=== PATIENT | male | born 1950 | race Two or more races ===

== ENCOUNTER 2020-10-11 07:57 | Day surgery (SDC) | payer MEDICARE, MEDICAID ==
--- NOTE | 2020-10-11 08:01 | PCM.PREANE ---
Preanesthetic Assessment - Procedure Proposed Procedure: Right Cataract Extraction with IOL. - Anesthesia/Transfusion/Family Hx Anesthesia History: Prior Anesthesia Without Reaction Family History of Anesthesia Reaction: No Transfusion History: No Prior Transfusion(s) Intubation History: Unknown - Review of Systems General: No Symptoms Pulmonary: No Symptoms (Quit smoking: more than 10 years ago.) Cardiovascular: No Symptoms, Palpitations Gastrointestinal: No Symptoms (GERD), Constipation, Diarrhea, Difficulty Swallowing Neurological: No Symptoms (CVA: 2000) Other: Reports: Easy Bleeding, Anxiety - Physical Assessment NPO Status Date: 10/10/20 NPO Status Time: 23:00 Vital Signs: HR:80 Sat:99% Temp:97.9 Resp:16 B/P:124/88 Height: 1.63 m Weight: 71.214 kg ASA Class: 3 Mental Status: Alert & Oriented x3 Airway Class: Mallampati = 2 Dentition: Reports: Normal Dentition, [place](s), Broken Tooth/Teeth, Missing Tooth/Teeth, Caries Thyro-Mental Finger Breadths: 3 Mouth Opening Finger Breadths: 3 ROM/Head Extension: Full Lungs: Clear to Auscultation, Normal Respiratory Effort Cardiovascular: Regular Rate, Regular Rhythm, No Murmurs - Allergies Allergies/Adverse Reactions: Allergies Allergy/AdvReac Type Severity Reaction Status Date / Time codeine Allergy Rash Verified 10/10/20 12:29 morphine AdvReac Delusions Verified 10/10/20 12:29 - Anesthesia Plan Pre-Op Medication Ordered: None - Acknowledgements Anesthesia Type Planned: MAC Pt an Appropriate Candidate for the Planned Anesthesia: Yes Alternatives and Risks of Anesthesia Discussed w Pt/Guardian: Yes Pt/Guardian Understands and Agrees with Anesthesia Plan: Yes PreAnesthesia Questionnaire HEENT History: Reports: Impaired Vision (disconjugate gaze) Cardiovascular History: Reports: Bypass Musculoskeletal History: Reports: 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) Neurological History: Reports: CVA ( Hemorrhagic, 2 ruptured cerebral aneurysm, 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) - Infectious Disease History Infectious Disease History: Reports: Meningitis (as an infant) - Past Surgical History Cardiovascular Surgical History: Reports: Other (See Below) (valve repair (unknown which) in [place], [place], 1966) - HOME MEDS Home Medications: Home Meds ALPRAZolam [Alprazolam Xr] 0.5 mg PO DAILY 06/15/18 [History] Gabapentin [Neurontin] 300 mg PO BID 06/15/18 [History] - CURRENT (IN HOUSE) MEDS Current Meds: Current Medications Brimonidine Tartrate (Alphagan 0.2% Ophth Soln) 0 ml EYERT ASDIRECTED PAMELA Stop: 10/11/20 23:00 Cefuroxime Sodium (Zinacef) 0 mg EYERT ASDIRECTED PAMELA Stop: 10/11/20 23:00 Lidocaine HCl (Xylocaine-Mpf 1%) 0 ml INJECT ASDIRECTED PAMELA Stop: 10/11/20 23:00 Phenylephrine HCl (Yung-Synephrine 2.5% Ophth Soln) 0 ml EYERT ASDIRECTED PAMELA Stop: 10/11/20 23:00 Pilocarpine HCl (Pilocar 4% Ophth Soln) 0 ml EYERT ASDIRECTED PAMELA Stop: 10/11/20 23:00 Polymyxin/Trimethoprim Sulfate (Polytrim Ophth Soln) 0 ml EYERT ASDIRECTED PAMELA Stop: 10/11/20 23:00 Tetracaine HCl (Tetracaine 0.5% Steri-Unit Emi) 0 ml EYEBOTH ASDIRECTED PAMELA Stop: 10/11/20 23:00 Tropicamide (Mydriacyl 1% Ophth Soln) 0 ml EYERT ASDIRECTED PAMELA Stop: 10/11/20 23:00
[2020-10-11] MEDS: Polymyxin B/Trimethoprim 10 ML Bottle EYERT SCH ×4 (08:20→09:43)
[2020-10-11] MEDS: Brimonidine 0.2% Ophth Soln 5 ML Bottle EYERT SCH ×4 (08:25→09:43)
[2020-10-11] MEDS: Phenylephrine 2.5% Ophth Soln 15 ML Bot EYERT SCH ×6 (08:30→09:20)
[2020-10-11] MEDS: Tetracaine HCl/PF 0.5% 4 ML Bottle EYEBOTH SCH ×3 (08:31→09:28)
[2020-10-11] MEDS: Pilocarpine 4% Ophth Soln 15 ML Bot EYERT SCH ×2 (08:31→09:43)
[2020-10-11] MEDS: Lidocaine 1% PF 2 ML SDV INJECT SCH ×2 (08:31→09:28)
[2020-10-11] MEDS: Cefuroxime 10 MG/ML SYRINGE EYERT SCH ×2 (08:31→09:43)
[2020-10-11] MEDS: Tropicamide 1% Ophth Soln 15 ML Bottle EYERT SCH ×4 (08:37→09:15)
--- NOTE | 2020-10-11 09:45 | PCM48HPAN ---
Post Anesthesia Note - EVALUATION WITHIN 48HRS OF ANESTHETIC Vital Signs in Normal Range: Yes Patient Participated in Evaluation: Yes Respiratory Function Stable: Yes Airway Patent: Yes Cardiovascular Function Stable: Yes Hydration Status Stable: Yes Pain Control Satisfactory: Yes Nausea and Vomiting Control Satisfactory: Yes Mental Status Recovered: Yes
== END 2020-10-11 09:54 | disposition home or self-care (01) ==
LOC: JD.SDS 07:57
PROVIDERS: ATTEND Ophthalmology
DX: H25.813 Combined forms of age-related cataract, bilateral (principal); H40.053 Ocular hypertension, bilateral; H16.103 Unspecified superficial keratitis, bilateral; H16.223 Keratoconjunctivitis sicca, not specified as Sjogren's, bilateral; H57.813 Brow ptosis, bilateral; H02.834 Dermatochalasis of left upper eyelid; H02.831 Dermatochalasis of right upper eyelid; H35.373 Puckering of macula, bilateral; Z86.73 Personal history of transient ischemic attack (TIA), and cerebral infarction without residual deficits; Z87.891 Personal history of nicotine dependence; Z79.899 Other long term (current) drug therapy; Z88.5 Allergy status to narcotic agent; Z88.8 Allergy status to other drugs, medicaments and biological substances
CPT/HCPCS: 66984; J0697; C1780

== ENCOUNTER 2020-11-08 09:06 | Day surgery (SDC) | payer MEDICARE, MEDICAID ==
[2020-11-08] MEDS: Polymyxin B/Trimethoprim 10 ML Bottle EYELF SCH ×4 (09:17→11:10)
--- NOTE | 2020-11-08 09:21 | PCM.PREANE ---
Preanesthetic Assessment - Procedure Proposed Procedure: left eye cataract extraction with IOL - Anesthesia/Transfusion/Family Hx Anesthesia History: Prior Anesthesia Without Reaction Family History of Anesthesia Reaction: No Transfusion History: No Prior Transfusion(s) Intubation History: Unknown - Review of Systems General: No Symptoms Pulmonary: No Symptoms Cardiovascular: No Symptoms Gastrointestinal: No Symptoms Neurological: Weakness, Gait Disturbance (stroke) Other: Reports: Anxiety - Physical Assessment NPO Status Date: 11/08/20 NPO Status Time: 09:00 Height: 1.75 m Weight: 74.843 kg ASA Class: 3 Mental Status: Alert & Oriented x3 Airway Class: Mallampati = 2 Dentition: Reports: Missing Tooth/Teeth, Caries Thyro-Mental Finger Breadths: 3 Mouth Opening Finger Breadths: 2 ROM/Head Extension: Limited/Partial Lungs: Clear to Auscultation, Normal Respiratory Effort Cardiovascular: Regular Rate, Regular Rhythm - Allergies Allergies/Adverse Reactions: Allergies Allergy/AdvReac Type Severity Reaction Status Date / Time codeine Allergy Rash Verified 11/07/20 12:59 warfarin Allergy Cannot Verified 11/07/20 12:59 Remember - Anesthesia Plan Pre-Op Medication Ordered: None - Acknowledgements Anesthesia Type Planned: MAC Pt an Appropriate Candidate for the Planned Anesthesia: Yes Alternatives and Risks of Anesthesia Discussed w Pt/Guardian: Yes Pt/Guardian Understands and Agrees with Anesthesia Plan: Yes PreAnesthesia Questionnaire HEENT History: Reports: Impaired Vision (disconjugate gaze) Cardiovascular History: Reports: Bypass Musculoskeletal History: Reports: 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) Neurological History: Reports: CVA ( Hemorrhagic, 2 ruptured cerebral aneurysm, 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) - Infectious Disease History Infectious Disease History: Reports: Meningitis (as an ) - Past Surgical History Cardiovascular Surgical History: Reports: Other (See Below) (valve repair (unknown which) in [place], [place], 1966) - HOME MEDS Home Medications: Home Meds ALPRAZolam [Alprazolam Xr] 0.5 mg PO DAILY 06/15/18 [History] Gabapentin [Neurontin] 300 mg PO BID 06/15/18 [History] - CURRENT (IN HOUSE) MEDS Current Meds: Current Medications Brimonidine Tartrate (Brimonidine 0.2% Ophth Soln 5 Ml Bottle) 0 ml EYELF ASDIRECTED PAMELA Stop: 11/08/20 23:00 Cefuroxime Sodium (Cefuroxime 10 Mg/Ml Syringe) 0 mg EYELF ASDIRECTED PAMELA Stop: 11/08/20 23:00 Lidocaine HCl (Lidocaine 1% Pf 2 Ml Sdv) 0 ml INJECT ASDIRECTED PAMELA Stop: 11/08/20 23:00 Phenylephrine HCl (Phenylephrine 2.5% Ophth Soln 2 Ml Bot) 0 ml EYELF ASDIRECTED PAMELA Stop: 11/08/20 23:00 Pilocarpine HCl (Pilocarpine 4% Ophth Soln 15 Ml Bot) 0 ml EYELF ASDIRECTED PAMELA Stop: 11/08/20 23:00 Polymyxin/Trimethoprim Sulfate (Polymyxin B/Trimethoprim 10 Ml Bottle) 0 ml EYELF ASDIRECTED PAMELA Stop: 11/08/20 23:00 Last Admin: 11/08/20 09:17 Dose: 1 drop Documented by: Tetracaine HCl (Tetracaine Hcl/Pf 0.5% 4 Ml Bottle) 0 ml EYEBOTH ASDIRECTED PAMELA Stop: 11/08/20 23:00 Tropicamide (Tropicamide 1% Ophth Soln 15 Ml Bottle) 0 ml EYELF ASDIRECTED PAMELA Stop: 11/08/20 23:00
[2020-11-08] MEDS: Brimonidine 0.2% Ophth Soln 5 ML Bottle EYELF SCH ×4 (09:23→11:09)
[2020-11-08] MEDS: Phenylephrine 2.5% Ophth Soln 2 ML Bot EYELF SCH ×6 (09:28→11:08)
[2020-11-08] MEDS: Tropicamide 1% Ophth Soln 15 ML Bottle EYELF SCH ×4 (09:33→10:07)
[2020-11-08] MEDS: Tetracaine HCl/PF 0.5% 4 ML Bottle EYEBOTH SCH ×5 (10:08→11:08)
[2020-11-08] MEDS: Lidocaine 1% PF 2 ML SDV INJECT SCH ×2 (10:27→11:09)
[2020-11-08] MEDS: Cefuroxime 10 MG/ML SYRINGE EYELF SCH ×2 (10:36→11:09)
[2020-11-08] MEDS: Pilocarpine 4% Ophth Soln 15 ML Bot EYELF SCH ×2 (10:37→11:09)
== END 2020-11-08 10:50 | disposition home or self-care (01) ==
LOC: JD.SDS 09:06
PROVIDERS: ATTEND Ophthalmology
DX: H25.812 Combined forms of age-related cataract, left eye (principal); H40.053 Ocular hypertension, bilateral; H57.813 Brow ptosis, bilateral; H35.373 Puckering of macula, bilateral; H02.831 Dermatochalasis of right upper eyelid; H02.834 Dermatochalasis of left upper eyelid; Z96.1 Presence of intraocular lens; Z88.6 Allergy status to analgesic agent; Z88.8 Allergy status to other drugs, medicaments and biological substances; Z87.891 Personal history of nicotine dependence; Z86.73 Personal history of transient ischemic attack (TIA), and cerebral infarction without residual deficits; Z79.899 Other long term (current) drug therapy; Z98.890 Other specified postprocedural states
CPT/HCPCS: 66984; J0697; C1780